=== PATIENT | female | born 1955 | race Caucasian/White ===

== ENCOUNTER → 2020-07-23 | Outpatient (CLI) | payer BC, OTHER ==
[~2020-07-23] VITALS: Ht 160 cm; Wt 90.7 kg
[~2020-07-23] MED LIST: PREDNISONE 50 M50 MG PO; VALTREX1000 MG PO
== END ==
LOC: OPSV 12:00
DX: M81.0 Age-related osteoporosis without current pathological fracture (principal)
CPT/HCPCS: 96365; J3489

== ENCOUNTER 2020-08-02 14:04 | Emergency (ER) | payer BC, OTHER ==
[2020-08-02 15:17] LABS: HEMOGLOBIN 13.3 gm/dl (12.3-15.3); RED BLOOD COUNT 4.37 M/UL (4.00-5.10); WHITE BLOOD COUNT 6.8 K/UL (4.5-11.0)
[2020-08-02 15:43] LABS: BUN/CREATININE RATIO 17 (0-10)
[2020-08-02] MEDS ORDERED: VALTREX1000 MG PO (18:11)
[2020-08-02] MEDS ORDERED: PREDNISONE 50 M50 MG PO (18:11)
== END 2020-08-02 18:50 | disposition home or self-care (01) ==
LOC: ER1 14:04
PROVIDERS: Emergency Medicine
DX: G51.0 Bell's palsy (principal); E87.1 Hypo-osmolality and hyponatremia; I10 Essential (primary) hypertension; E11.9 Type 2 diabetes mellitus without complications; E23.0 Hypopituitarism; E03.9 Hypothyroidism, unspecified; E78.5 Hyperlipidemia, unspecified; Z90.49 Acquired absence of other specified parts of digestive tract; F17.200 Nicotine dependence, unspecified, uncomplicated; Z90.89 Acquired absence of other organs
CPT/HCPCS: 70450; 71045; 80053; 81001; 82436; 82550; 82553; 82570; 83874; 83935; 84133; 84300; 84484; 85025; 93005; 99284; J7030